=== PATIENT | female | born 1940 | race Hispanic/Latino ===

== ENCOUNTER 2018-05-10 10:26 | Outpatient (CLI) | payer MEDICARE, BC | END 2018-05-10 10:27 | disposition home or self-care (01) | LOC: RAD 10:26 | DX: I10 Essential (primary) hypertension (principal) ==

== ENCOUNTER 2018-05-28 11:22 | Emergency (ER) | payer MEDICARE, BC ==
--- NOTE | 2018-05-28 12:30 | ED PDOC ---
Arrival/HPI - General Chief Complaint: Hip Pain Time Seen by Provider: 05/28/18 11:56 Historian: Patient - History of Present Illness Narrative History of Present Illness (Text): 05/28/18 12:29 77 year old male, with past medical history of hypertension, hyperlipidemia, vertigo and total hip replacement (3 years ago), presents to the ED for evaluation of lower back pain s/p fall 2 days ago. Patient reports slip and fall onto her buttocks from a wet floor in a restaurant Sunday, however reports appropriate ambulation following the incident. Patient denies any head injury or loss of consciousness at the time. Patient reports worsening lower back pain since Sunday, intermittently improved with Advil at home. Patient denies any other associated somatic complaints. Patient denies any fevers, chills, headache, dizziness, chest pain, shortness of breath, dyspnea on exertion, cough, abdominal pain, nausea, vomiting, diarrhea, urinary or bowel incontinence, numbness/tingling, neck pain, or any other complaints. PMD: Dr. Juarez Time/Duration: < week Symptom Onset: Gradual Symptom Course: Unchanged Activities at Onset: Light Context: Home Past Medical History - Provider Review Nursing Documentation Reviewed: Yes - Cardiac Hx Hypertension: Yes - Psychiatric Hx Depression: No Hx Emotional Abuse: No Hx Physical Abuse: No Hx Substance Use: No - Surgical History Hx Joint Replacement: Yes (hip) - Anesthesia Hx Anesthesia: Yes Hx Anesthesia Reactions: No Hx Malignant Hyperthermia: No - Suicidal Assessment Feels Threatened In Home Enviroment: No Family/Social History - Physician Review Nursing Documentation Reviewed: Yes Family/Social History: No Known Family HX Smoking Status: Never Smoked Hx Alcohol Use: No Hx Substance Use: No Hx Substance Use Treatment: No Allergies/Home Meds Allergies/Adverse Reactions: Allergies erythromycin base Allergy (Verified 05/28/18 12:04) ANAPHYLAXIS latex Allergy (Verified 05/31/18 11:18) JUAREZ OCCUR ON SKIN Penicillins Allergy (Verified 05/28/18 12:04) ANAPHYLAXIS pregabalin [From Lyrica] Allergy (Verified 05/28/18 12:05) ANAPHYLAXIS Sulfa (Sulfonamide Antibiotics) Allergy (Verified 05/28/18 12:04) ANAPHYLAXIS sulfamethoxazole [From Bactrim] Allergy (Verified 05/28/18 12:04) ANAPHYLAXIS trimethoprim Allergy (Verified 05/28/18 12:04) ANAPHYLAXIS Home Medications: Home Meds Medication Instructions Recorded Confirmed Cholecalciferol (Vitamin D3) 2,000 iu PO DAILY 05/28/18 05/31/18 [Vitamin D3] Levothyroxine [Synthroid] 100 mcg PO DAILY 05/28/18 05/31/18 RX: Aspirin [Lo-Dose Aspirin EC] 81 mg PO DAILY 05/28/18 05/31/18 RX: Meclizine [Antivert] 12.5 mg PO DAILY PRN 05/28/18 05/31/18 RX: Simvastatin [Zocor] 40 mg PO DAILY 05/28/18 05/31/18 RX: Valsartan [Diovan] 80 mg PO DAILY 05/28/18 05/31/18 Review of Systems - Physician Review All systems were reviewed & negative as marked: Yes - Review of Systems Constitutional: absent: Fevers Respiratory: absent: SOB, Cough Cardiovascular: absent: Chest Pain Gastrointestinal: absent: Abdominal Pain, Diarrhea Genitourinary Female: absent: Dysuria Musculoskeletal: Back Pain. absent: Neck Pain Skin: absent: Rash Neurological: absent: Headache, Dizziness Physical Exam Vital Signs Reviewed: Yes Vital Signs Temp Pulse Resp BP Pulse Ox 05/28/18 11:22 98.3 F 68 18 165/75 H 96 Temperature: Afebrile Blood Pressure: Hypertensive Pulse: Regular Respiratory Rate: Normal Appearance: Positive for: Well-Appearing, Non-Toxic, Comfortable Pain Distress: None Mental Status: Positive for: Alert and Oriented X 3 - Systems Exam Head: Present: Atraumatic, Normocephalic Pupils: Present: PERRL Extroacular Muscles: Present: EOMI Conjunctiva: Present: Normal Mouth: Present: Moist Mucous Membranes Neck: Present: Normal Range of Motion. No: MIDLINE TENDERNESS, Paraspinal Tenderness Respiratory/Chest: Present: Clear to Auscultation, Good Air Exchange. No: Respiratory Distress, Accessory Muscle Use Cardiovascular: Present: Regular Rate and Rhythm, Normal S1, S2. No: Murmurs Back: Present: Paraspinal Tenderness (mid throacic and right sided lumbar pa raspinal tenderness). No: Midline Tenderness Upper Extremity: Present: Normal Inspection. No: Cyanosis, Edema Lower Extremity: Present: Normal Inspection, NORMAL PULSES. No: Edema Neurological: Present: GCS=15, CN II-XII Intact, Speech Normal, Motor Func Grossly Intact, Norm Deep Tendon Reflexes Skin: Present: Warm, Dry, Normal Color. No: Rashes Psychiatric: Present: Alert, Oriented x 3, Normal Insight, Normal Concentration Medical Decision Making ED Course and Treatment: 05/28/18 12:27 Impression: 77 year old female presents to the ED for evaluation of lower back pain s/p fall. Differential Diagnosis included but are not limited to: -- Fracture -- Musculoskeletal Plan: -- Toradol -- X-ray of thoracic spine -- X-ray of Lumbar Spine -- Reassess and disposition Prior Visits: Notes and results from previous visits were reviewed. Progress Notes: 05/28/18 15:40 Patient states feeling better and would like to go home. Patient is very well appearing and non-toxic. Vital signs are stable. I discussed the results of the work-up, diagnosis and treatment. I discussed with her in detail regarding her compression fracture. Written discharge instructions were provided to patient. Additional verbal instructions were given and discussed with patient. We discussed the importance of follow up with PCP/consultants. I also reiterated reasons to immediately return to the ER including: worsening in current symptoms and/or new, continued, or concerning symptoms. Pt understood and agreed. 05/28/18 15:[address] Sampson tineo, interventional radiologist, he will send a prescription for the patient to get an MR done, then will follow up with her when he gets the results. - Scribe Statement The provider has reviewed the documentation as recorded by the Scribe Jessica Rico. All medical record entries made by the Scribe were at my direction and personally dictated by me. I have reviewed the chart and agree that the record accurately reflects my personal performance of the history, physical exam, medical decision making, and the department course for this patient. I have also personally directed, reviewed, and agree with the discharge instructions and disposition. Disposition/Present on Arrival - Present on Arrival Any Indicators Present on Arrival: No History of DVT/PE: No History of Uncontrolled Diabetes: No Urinary Catheter: No History of Decub. Ulcer: No History Surgical Site Infection Following: None - Disposition Have Diagnosis and Disposition been Completed?: Yes Diagnosis: Compression fracture of T12 vertebra Disposition: HOME/ ROUTINE Disposition Time: 16:02 Patient Plan: Discharge Condition: STABLE Discharge Instructions (ExitCare): Vertebral Compression Fracture (DC) Prescriptions: RX: traMADol [Ultram] 50 mg PO Q6H PRN #20 tab PRN Reason: Pain, Severe (8-10) Referrals: Sampson Tineo MD [Staff Provider] - Follow up with primary Forms: [email or web address] ([employer])
--- NOTE | 2018-05-28 14:17 | RAD ---
Date of service: 05/28/2018 PROCEDURE: Radiographs of the Lumbar Spine. HISTORY: fall/injury COMPARISON: No prior. FINDINGS: BONES: There is moderate loss in height of the T12 vertebral body consistent with compression fracture of indeterminate age. The remaining vertebral bodies are maintained in height. Normal alignment is maintained. There is mild thoracolumbar levoscoliosis. The transverse processes and posterior elements appear intact. DISC SPACES: There is narrowing of the L4-5 intervertebral disc space consistent with degenerative disc disease. OTHER FINDINGS: Right hip arthroplasty IMPRESSION: Moderate compression deformity of T12 vertebral body of indeterminate age.
--- NOTE | 2018-05-28 14:18 | RAD ---
Date of service: 05/28/2018 HISTORY: fall/injury COMPARISON: No prior. FINDINGS: BONES: Moderate loss in height of the T12 vertebral body consistent with compression fracture of indeterminate age the remaining vertebral bodies are maintained in height. There is thoracic dextroscoliosis. Normal alignment is otherwise maintained. DISC SPACES: Normal. SOFT TISSUES: Paraspinous soft tissues are unremarkable. OTHER FINDINGS: None. IMPRESSION: Moderate compression deformity of T12 vertebra of indeterminate age.
[2018-05-28 15:34] VITALS: TEMP 98.2; O2SAT 97
[2018-05-28 16:26] VITALS: BP 150/86; PULSE 69; RESP 16
== END 2018-05-28 16:25 | disposition home or self-care (01) ==
LOC: ED 11:22
DX: M48.54XA Collapsed vertebra, not elsewhere classified, thoracic region, initial encounter for fracture (principal); W01.0XXA Fall on same level from slipping, tripping and stumbling without subsequent striking against object, initial encounter; E78.5 Hyperlipidemia, unspecified; I10 Essential (primary) hypertension
CPT/HCPCS: 72070; 72100; 96372; 99284; J1885

== ENCOUNTER 2018-05-30 12:03 | Outpatient (CLI) | payer MEDICARE, BC | END 2018-05-30 12:04 | disposition home or self-care (01) | LOC: RAD 12:04 ==

== ENCOUNTER 2018-06-03 13:00 | Inpatient (IN) | payer MEDICARE, BC ==
[2018-05-31 11:17] VITALS: BMI 40.0
[2018-06-03 14:05] LABS: BASO # 0.02 K/mm3 (0.0-2.0); BASO % 0.3 % (0.0-3.0); EOS # 0.2 (0.0-0.7); EOS % 2.5 % (1.5-5.0); HEMOGLOBIN 11.2 g/dL (12.0-16.0); LYMPH # 1.7 (1.2-3.4); LYMPH % 23.8 % (22.0-35.0); MEAN CELL VOLUME 92.6 fl (80.0-105.0); MEAN CORPUSCULAR HEMOGLOBIN 30.9 pg (25.0-35.0); MEAN CORPUSCULAR HGB CONC 33.3 g/dl (31.0-37.0); MEAN PLATELET VOLUME 7.7 fl (7.0-11.0); MONO # 0.6 (0.1-0.6); MONO % 8.1 % (1.0-6.0); RBC 3.63 10^6/uL (3.5-6.1); RED CELL DISTRIBUTION WIDTH 13.4 % (11.5-14.5); WHITE BLOOD COUNT 7.3 10^3/uL (4.5-11.0)
[2018-06-03 14:11] LABS: BLOOD UREA NITROGEN 25 mg/dL (7-21); CALCIUM 9.4 mg/dL (8.4-10.5); GFR NON-AFRICAN AMERICAN > 60
[2018-06-03 14:19] LABS: INR 1.1; PROTHROMBIN TIME 12.2 SECONDS (9.4-12.5)
[2018-06-03] MEDS ORDERED: Lidocaine 2% Inj (20ml) ONE (15:06)
[2018-06-03] MEDS ORDERED: Midazolam 2 MG/2 ML VIAL ONE ×2 (16:55→17:11)
[2018-06-03] MEDS ORDERED: Oxycodone/Acetaminophen 5/325 mg Tab PO PRN (17:45)
[2018-06-03] MEDS ORDERED: Sodium Chloride 0.45% 1,000 ML IV SCH (17:45)
--- NOTE | 2018-06-03 19:17 | VASCULAR ---
PROCEDURE: 1. T12 kyphoplasty. 2. T12 vertebral body biopsy. HISTORY: Severe, refractory back pain. Unresponsive to bed rest and analgesics. Acute T12 compression fracture on MRI. PHYSICIAN(S): Sampson Pena MD. TECHNIQUE: he relative risks and indications of the procedure were explained to the patient and her daughters and informed written consent obtained. The patient was placed prone on the arteriography table and the thoracolumbar spine prepped and draped in the usual sterile fashion. Conscious sedation and monitoring were provided throughout the procedure by a nurse. The T12 vertebral body was carefully localized with fluoroscopy. The skin and soft tissues were anesthetized with 1% Xylocaine. Under direct fluoroscopic guidance, bilateral transpedicular bone needles were placed into the posterior aspect of the T12 vertebral body. Through the right needle, a biopsy of the [id number] body was performed. The specimen was sent to histology. Next bilateral 15mm bone balloons were placed in the superior and anterior portion of the T12 vertebral body. They were inflated to approximately 5 cc apiece with dilute contrast. The balloons were removed and 7.5 cc of barium-impregnated PMMA cement instilled into the T12 vertebral body. No extravasation was seen. The bone needles were removed. The patient tolerated the procedure well. IMPRESSION: 1. Fluoroscopically-guided T12 kyphoplasty. 2. Fluoroscopic T12 vertebral body biopsy.
[2018-06-04] MEDS: Levothyroxine 100 MCG TAB PO SCH ×2 (05:53→11:06)
[2018-06-04] MEDS ORDERED: Morphine 2 mg/ml ISec IVP PRN ×2 (09:03→15:33)
[2018-06-04] MEDS ORDERED: Sodium Chloride 0.45% 1,000 ML IV SCH (09:15)
[2018-06-04] MEDS ORDERED: Home Med 1 UNIT PO SCH (10:00)
[2018-06-04] MEDS: Cholecalciferol 1,000 INTLU TAB PO SCH (11:13)
--- NOTE | 2018-06-04 13:08 | CP.PCM.APN ---
Subjective - Date & Time of Evaluation Date of Evaluation: 06/04/18 Time of Evaluation: 15:00 - Subjective Subjective: Pt seen and examined at bedside. No c/o back pain, but complaining of bilateral hip pain, L>R. Stated that she slipped and fell 05/26/18 but did not seek any medical help. Objective - Vital Signs/Intake and Output Vital Signs (last 24 hours): Temp Pulse Resp BP Pulse Ox 98.6 F 62 20 112/65 96 06/04/18 06:00 06/04/18 11:14 06/04/18 06:00 06/04/18 11:14 06/04/18 06:00 Intake and Output: 06/04/18 06/04/18 06:59 18:59 Intake Total 770 Output Total 750 Balance 20 - Medications Medications: Current Medications Acetaminophen (Tylenol 325mg Tab) 650 mg PO Q4 PRN PRN Reason: Pain, Mild (1-3) Last Admin: 06/04/18 00:50 Dose: 650 mg Acetaminophen (Tylenol 325mg Tab) 650 mg PO Q6H PRN PRN Reason: Pain, Mild (1-3) Last Admin: 06/04/18 09:44 Dose: 650 mg Aspirin (Ecotrin) 81 mg PO DAILY [facility] [place] Last Admin: 06/04/18 11:13 Dose: 81 mg Atorvastatin Calcium (Lipitor) 20 mg PO DIN [facility] [place] Cholecalciferol (Vitamin D) 2,000 intlu PO DAILY [facility] [place] Last Admin: 06/04/18 11:13 Dose: 2,000 intlu Sodium Chloride (Sodium Chloride 0.45%) 1,000 mls @ 40 mls/hr IV .Q24H [facility] [place] Levothyroxine Sodium (Synthroid) 100 mcg PO ACB [facility] [place] Last Admin: 06/04/18 11:06 Dose: Not Given Losartan Potassium (Cozaar) 50 mg PO DAILY [facility] Last Admin: 06/04/18 11:14 Dose: 50 mg Meclizine HCl (Antivert) 12.5 mg PO DAILY PRN PRN Reason: Dizziness Morphine Sulfate (Morphine) 2 mg IVP Q4H PRN PRN Reason: Pain, moderate (4-7) Ondansetron HCl (Zofran Inj) 4 mg IVP Q6H PRN PRN Reason: Nausea/Vomiting Oxycodone/Acetaminophen (Percocet 5/325 Mg Tab) 1 tab PO Q4H PRN PRN Reason: Pain, moderate (4-7) Stop: 06/06/18 17:46 - Labs Labs: 06/03/18 13:55 06/03/18 13:55 PT 12.2 SECONDS (9.4-12.5) 06/03/18 13:55 INR 1.10 06/03/18 13:55 APTT 36.0 Seconds (26.9-38.3) 06/03/18 13:55 - Constitutional Appears: No Acute Distress - Eye Exam Eye Exam: Normal appearance - Neck Exam Neck Exam: Full ROM - Respiratory Exam Respiratory Exam: Clear to Ausculation Bilateral, NORMAL BREATHING PATTERN - Cardiovascular Exam Cardiovascular Exam: REGULAR RHYTHM, +S1, +S2 - GI/Abdominal Exam GI & Abdominal Exam: Soft, Normal Bowel Sounds - Rectal Exam Rectal Exam: Deferred - Neurological Exam Neurological Exam: Alert, Awake, Oriented x3 Assessment and Plan - Assessment and Plan (Free Text) Assessment: Pt is a 77 y.o. female who is s/p Kyphoplasty. ITS Impressions Interventional Vascular Procedure 06/03/18 10:27 IMPRESSION: 1. Fluoroscopically-guided T12 kyphoplasty. 2. Fluoroscopic T12 vertebral body biopsy. Plan: Pain management Physical therapy Meds per [facility] TCU eval Will continue to follow
--- NOTE | 2018-06-04 13:38 | RAD ---
PROCEDURE: Radiographs of the pelvis and bilateral hips HISTORY: pain COMPARISON: None. FINDINGS: BONES: Pelvis: Unremarkable. Right hip:No fracture. Left hip:Unremarkable. JOINTS: Right hip: Status post right hip arthroplasty. No evidence of prosthesis loosening. Left hip: Unremarkable. Sacroiliac Joints: Unremarkable. Pubic symphysis: Unremarkable. SOFT TISSUES: Normal. OTHER FINDINGS: None. IMPRESSION: No acute fracture. Right hip arthroplasty.
--- NOTE | 2018-06-04 19:29 | HP ---
DATE OF EXAM: 06/04/2018 HISTORY OF PRESENT ILLNESS: I have known Edna for many years. She apparently had a fall and then she was in back pain. She fell on 05/26/2018, had severe back pain across the waist, and had outpatient x-rays, which showed compression fractures. I sent her to Dr. Sampson Pena for evaluation. He then did a T12 acute compression fracture kyphoplasty, I thought should be in and out and 24 hours or less, apparently now she cannot move except for excruciating pain and she is in bed. She had an extended stay, but today she tells me she feels worse than yesterday. She said she can get up, she lives alone, cannot take care of herself and her condition and scared to get up and move and there is a lot of pain, pain to palpation and pain to moving the legs. I will put her on more pain medication. She is a 77-year-old white female with a history of fall, compression fractures, and recent kyphoplasty. 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 She had chemo injections, cataracts, precancerous nodules of the thyroid. She has had hysterectomy, right hip replacement 3 years ago, and thyroid biopsies. SOCIAL HISTORY: No smoking. No drinking. No drugs. Anesthesia makes her confused with speech impairment and nauseousness. FAMILY HISTORY: Father had heart disease. She is awake, alert, and oriented x3. She has very bad back pain. History of ankles being swollen. She has arthritis. No problems going to the bathroom or eating. She does have some anxiety history. REVIEW OF SYSTEMS: No acute vision or hearing changes. No chest pain or palpitations. No cough or shortness of breath. No abdominal pain, nausea, or vomiting. She has severe back pain, difficult to move the legs without having the pain exacerbated. ALLERGIES: SHE HAS MULTIPLE ALLERGIES ADHESIVE TAPE, ERYTHROMYCIN, LATEX PENICILLIN, PREGABALIN, AND SULFA. MEDICATIONS: She does take at home; tramadol, meclizine, valsartan, aspirin, levothyroxine, vitamin D3, and Zocor. We will put her on her medications. I was hoping to discharge her today, but she cannot move without severe pain. I am adding morphine IV to the tramadol, also she has some Zofran for the nauseousness, put her back on a regular medications. PHYSICAL EXAMINATION: VITAL SIGNS: She has a 98.6 temperature, 62 pulse, 110/64 blood pressure, 20 respiratory rate, and 96% O2 sat on nasal cannula. HEENT: Head; atraumatic and normocephalic. Extraocular muscles are intact. Pupils equal and reactive to light. Throat is moist. NECK: Supple. No JVD. HEART: Regular rate. LUNGS: Decreased breath sounds, but clear. ABDOMEN: Soft, obese, and nontender. Positive bowel sounds. EXTREMITIES: Trace edema. She does have severe back pain to palpation, she would not move, she is in pain, and she is very uncomfortable. LABORATORY DATA: She has 138 sodium, potassium 4.4, BUN 25, creatinine 0.7, GFR is greater than 60, sugar is 92, and calcium is 9.4. INR is 1.1. White count 7.3, hemoglobin 11.2, hematocrit 33.6 with 245 platelets. ASSESSMENT AND PLAN: We tried to get her in now as the same-day surgery that is extended recovery, now I have to plan make her an inpatient. She probably subacute rehab or transitional care unit, status post fall, back pain, kyphoplasty. I called in physical therapist, increase the pain medication. For elevated BUN, I will give her some IV fluids. She has consults with Dr. Sampson Pena and physical therapy. Eyal Juarez DO MTDD
[2018-06-05] MEDS: Levothyroxine 100 MCG TAB PO SCH (06:44)
[2018-06-05 07:32] LABS: HEMOGLOBIN 10.5 g/dL (12.0-16.0); MEAN CELL VOLUME 92.6 fl (80.0-105.0); MEAN CORPUSCULAR HGB CONC 32.4 g/dl (31.0-37.0); MEAN PLATELET VOLUME 7.9 fl (7.0-11.0); RBC 3.5 10^6/uL (3.5-6.1); RED CELL DISTRIBUTION WIDTH 13.7 % (11.5-14.5); WHITE BLOOD COUNT 6.6 10^3/uL (4.5-11.0)
[2018-06-05 08:13] LABS: ALB/GLOB RATIO 1.2 (1.1-1.8); ALBUMIN 3.5 g/dL (3.0-4.8); ALT/SGPT 7 U/L (7-56); AST/SGOT 31 U/L (14-36); BLOOD UREA NITROGEN 17 mg/dL (7-21); GFR NON-AFRICAN AMERICAN > 60
[2018-06-05] MEDS: Cholecalciferol 1,000 INTLU TAB PO SCH (09:25)
--- NOTE | 2018-06-05 10:20 | PN ---
DATE: 06/05/2018 SUBJECTIVE: She is in pain in her back and her hips. She is not feeling well status post kyphoplasty. She is on Antivert, Cozaar, Ecotrin, Lipitor, morphine, IV fluids, Synthroid, Tylenol, Ultram, vitamin D and Zofran. PHYSICAL EXAMINATION: VITAL SIGNS: She has a 98.1 temperature, 72 pulse, 144/71 blood pressure, 20 respiratory rate, 94% O2 sat on 2 liters. HEAD: Atraumatic, normocephalic. HEART: Regular rate. LUNGS: Decreased breath sounds. ABDOMEN: Soft, obese, nontender. EXTREMITIES: Trace edema. She has low back pain to palpation. LABORATORY DATA: She has a 7.3 white count, 11.2 hemoglobin, 245 platelets. She has a 138 sodium, potassium 4.4, BUN 25, creatinine 0.7,GFR is greater than 60, sugar is 92. She has a hip and pelvis x-ray, no acute fracture, right hip arthroplasty, so she is in a lot of pain. RECOMMENDATIONS: We are going to get her to TCU after three overnights. We will continue with aggressive treatment and care, back pain medicines, physical therapy here in the hospital. Hopefully, she will improve. She has pain medicines on. The patient with compression fractures, had kyphoplasty and in pain. Eyal Juarez DO
[2018-06-06 07:40] LABS: HEMOGLOBIN 10.2 g/dL (12.0-16.0); MEAN CORPUSCULAR HEMOGLOBIN 30.4 pg (25.0-35.0); MEAN PLATELET VOLUME 7.9 fl (7.0-11.0); RBC 3.36 10^6/uL (3.5-6.1); RED CELL DISTRIBUTION WIDTH 13.5 % (11.5-14.5); WHITE BLOOD COUNT 6.6 10^3/uL (4.5-11.0)
[2018-06-06 07:58] LABS: ALB/GLOB RATIO 1.2 (1.1-1.8); ALBUMIN 3.4 g/dL (3.0-4.8); ALT/SGPT 13 U/L (7-56); AST/SGOT 20 U/L (14-36); BLOOD UREA NITROGEN 19 mg/dL (7-21); CALCIUM 8.9 mg/dL (8.4-10.5); GFR NON-AFRICAN AMERICAN > 60
[2018-06-06] MEDS: Levothyroxine 100 MCG TAB PO SCH (08:10)
[2018-06-06] MEDS: Cholecalciferol 1,000 INTLU TAB PO SCH (10:29)
--- NOTE | 2018-06-06 13:30 | PN ---
DATE: 06/06/2018 SUBJECTIVE: I saw Edna resting comfortably in chair. She is still in severe back pain. She is able to walk to the bathroom, but she is still in lot of pain. MEDICATIONS: She is on Antivert, Cozaar, Ecotrin, Mevacor, morphine, IV fluids, Synthroid, Tylenol, Ultram, vitamin D and Zofran. PHYSICAL EXAMINATION: VITAL SIGNS: Temperature 98.5, pulse 66, blood pressure 117/66, respiratory rate 18, 94% O2 sat on room air. HEAD: Atraumatic, normocephalic. HEART: Regular rate. LUNGS: Decreased breath sounds, but clear. ABDOMEN: Soft, obese. EXTREMITIES: No edema. BACK: The back pain is still very tender. LABORATORY DATA: She has a 6.6 white count, 10.2 hemoglobin, 30.9 hematocrit with 232 platelets. Sodium 138, potassium 4.3, BUN is 19, creatinine 0.6, GFR is greater than 60, sugar is 93, calcium is 8.9, total bili is 0.3, AST is 20, ALT is 13, alk phos 75, total protein 6.3, albumin is 3.4. TSH is 3.66. ASSESSMENT AND PLAN: She is being seen by Cardiology, cardiac catheterization and hopefully tomorrow we will get her to transitional care unit and she is here with compression fracture of the low back with a kyphoplasty and severe pain. Eyal Juarez DO MTDMarycarmen
[2018-06-06] MEDS ORDERED: Bisacodyl 5mg EC Tab PO PRN (18:39)
[2018-06-07] MEDS: Levothyroxine 100 MCG TAB PO SCH (06:39)
[2018-06-07 07:51] LABS: HEMOGLOBIN 11.2 g/dL (12.0-16.0); MEAN CELL VOLUME 93.1 fl (80.0-105.0); MEAN CORPUSCULAR HEMOGLOBIN 29.7 pg (25.0-35.0); MEAN CORPUSCULAR HGB CONC 31.9 g/dl (31.0-37.0); MEAN PLATELET VOLUME 7.9 fl (7.0-11.0); RBC 3.77 10^6/uL (3.5-6.1); RED CELL DISTRIBUTION WIDTH 13.5 % (11.5-14.5); WHITE BLOOD COUNT 7.9 10^3/uL (4.5-11.0)
[2018-06-07 08:15] VITALS: BP 106/53; PULSE 66; RESP 20; TEMP 98.3; O2SAT 95
[2018-06-07 08:17] LABS: ALB/GLOB RATIO 1.2 (1.1-1.8); ALBUMIN 3.9 g/dL (3.0-4.8); ALT/SGPT 14 U/L (7-56); AST/SGOT 19 U/L (14-36); BLOOD UREA NITROGEN 18 mg/dL (7-21); CALCIUM 9.4 mg/dL (8.4-10.5); GFR NON-AFRICAN AMERICAN > 60
[2018-06-07] MEDS ORDERED: Morphine 2 mg/ml ISec IVP PRN (10:11)
[2018-06-07] MEDS: Cholecalciferol 1,000 INTLU TAB PO SCH (12:35)
--- NOTE | 2018-06-07 18:50 | CON ---
DATE: 06/07/2018 ORTHOPEDIC CONSULTATION LOCATION: In room 572, bed 1. Consult requested by Dr. Juarez. HISTORY OF PRESENT ILLNESS: A 77-year-old female, the patient came in with extreme low back pain approximately 05/28/2018 and found to have T12 compression fracture about 10-15% and underwent a vertebroplasty with the interventional radiology and had good relief, and presently she still has paralumbar spinal pain with no evidence of radiculitis, no straight leg raising and has less paraspinal muscle pain in the flank and the hip muscles, but no evidence of any spinal column discomfort; but no tenderness along the spinous processes. I feel also she has the heeling compression fracture of T12 with paraspinal muscle contusion, sprain and referred pain which should subside with good physical therapy, she was told of the precautions that she needs to do by not walking without assisted device like a cane or a walker, to sleep on a firm mattress and not to lose consciousness that she should not do thing, she should not such as lifting or twisting and to sleep on a good recliner or firm mattress and to undergo physical therapy to regain muscle strength, but there is no evidence of radicular pain that would be the worse thing. Otherwise, she has a good prognosis to improve her muscle strength when she goes to physical therapy. FINAL DIAGNOSES: Paraspinal muscle sprain and contusion from the fall on Sunday approximately the 01 of June. Christopher Kim DO
--- NOTE | 2018-06-07 20:27 | DS ---
DISCHARGE SUMMARY: She is being discharged from the hospital side going to the TCU side. She had a kyphoplasty for compression fracture with Dr. Sampson Pena. She is also going to consult with Dr. Christopher Kim for persistent back pain. She is going to go to TCU for physical therapy and care. She is on IV fluids, Antivert, Colace, Cozaar, Ecotrin, Lipitor, morphine, Synthroid, Tylenol, Ultram, vitamin D and Zofran. I am going to decrease the morphine to 1 mg if she starts getting off these pain meds that will help her bowels and she understands she is going to the TCU for physical therapy and to get to her procedure. PHYSICAL EXAMINATION: VITAL SIGNS: She has a 98.3 temperature, 66 pulse, 106/52 blood pressure, 20 respiratory rate, and 95% O2 sat on room air. HEENT: Head is atraumatic and normocephalic. HEART: Regular rate. LUNGS: Decreased breath sounds but clear. ABDOMEN: Soft, obese, and nontender. EXTREMITIES: No edema. BACK: She does have back pain. LABORATORY DATA: She has a 7.9 white count, 11.2 hemoglobin, 35.1 hematocrit, and 291 platelets. Sodium 142, potassium 4.4, BUN is 80, creatinine 0.7, GFR is greater than 60, sugar is 90, calcium 9.4, total bili is 0.4, AST is 19, ALT is 14, alk phos 85, total protein 7.2, albumin is 3.9. TSH 3.66. DISCHARGE DIAGNOSIS AND PLAN: She is status post fall, compression fracture status post kyphoplasty severe back pain going to TCU for further PT before she goes home. Ortho consult. Eyal Juarez DO
== END 2018-06-07 14:47 | DRG 479 ==
LOC: SDSVAS 13:00 → 5RSO 19:08 → SDSVAS 06-04 08:59
PROVIDERS: ADMIT Family Medicine; ATTEND Radiology Vascular & Interventional Radiology
PROC: 0PS43ZZ Reposition Thoracic Vertebra, Percutaneous Approach (ICD-10-PCS; principal; 2018-06-03)
PROC: 0PB43ZX Excision of Thoracic Vertebra, Percutaneous Approach, Diagnostic (ICD-10-PCS; 2018-06-03)
PROC: 0PU43JZ Supplement Thoracic Vertebra with Synthetic Substitute, Percutaneous Approach (ICD-10-PCS; 2018-06-03)
DX: S22.089A Unspecified fracture of T11-T12 vertebra, initial encounter for closed fracture (principal); I10 Essential (primary) hypertension; E04.2 Nontoxic multinodular goiter; F41.9 Anxiety disorder, unspecified; E78.00 Pure hypercholesterolemia, unspecified; Z86.11 Personal history of tuberculosis; W01.0XXA Fall on same level from slipping, tripping and stumbling without subsequent striking against object, initial encounter; Y92.9 Unspecified place or not applicable; D64.9 Anemia, unspecified; Z96.641 Presence of right artificial hip joint

== ENCOUNTER 2018-06-07 14:50 | Inpatient (IN) | payer OTHER, BC ==
[2018-06-07] MEDS ORDERED: Morphine 2 mg/ml ISec IVP PRN (15:04)
[2018-06-07] MEDS ORDERED: Sodium Chloride 0.45% 1,000 ML IV SCH (15:15)
[2018-06-07 20:30] VITALS: BMI 41.0
[2018-06-07] MEDS ORDERED: Pneumococcal 23-Valent Vaccine IM ONE (20:30)
[2018-06-07] MEDS ORDERED: Influenza Vaccine 60 mcg/0.5 mL SYR (4YR UP) IM ONE (20:30)
[2018-06-08] MEDS: Levothyroxine 100 MCG TAB PO SCH (05:49)
[2018-06-08 07:45] LABS: BASO # 0.03 K/mm3 (0.0-2.0); BASO % 0.5 % (0.0-3.0); EOS # 0.2 (0.0-0.7); EOS % 3.4 % (1.5-5.0); HEMOGLOBIN 10.7 g/dL (12.0-16.0); LYMPH # 1.6 (1.2-3.4); LYMPH % 24.8 % (22.0-35.0); MEAN CELL VOLUME 92.4 fl (80.0-105.0); MEAN CORPUSCULAR HEMOGLOBIN 30.2 pg (25.0-35.0); MEAN CORPUSCULAR HGB CONC 32.7 g/dl (31.0-37.0); MEAN PLATELET VOLUME 7.8 fl (7.0-11.0); MONO # 0.5 (0.1-0.6); MONO % 7.4 % (1.0-6.0); RBC 3.54 10^6/uL (3.5-6.1); RED CELL DISTRIBUTION WIDTH 13.4 % (11.5-14.5); WHITE BLOOD COUNT 6.5 10^3/uL (4.5-11.0)
[2018-06-08 08:15] LABS: ALB/GLOB RATIO 1.2 (1.1-1.8); ALBUMIN 3.7 g/dL (3.0-4.8); ALT/SGPT 12 U/L (7-56); AST/SGOT 36 U/L (14-36); BLOOD UREA NITROGEN 23 mg/dL (7-21); CALCIUM 9.1 mg/dL (8.4-10.5); GFR NON-AFRICAN AMERICAN > 60
[2018-06-08] MEDS: Cholecalciferol 1,000 INTLU TAB PO SCH (09:12)
--- NOTE | 2018-06-08 13:59 | HP ---
DATE OF EXAM: 06/08/2018 HISTORY AND PHYSICAL: She is now on the Transitional Care Unit. She is out of the hospital side. She is a 77-year-old white female who is having some low back issues. She had a fall and back pain with some compression fractures. She is saw Dr. Sampson Pena, he find a T12 acute compression fracture, did kyphoplasty and was not able to get up and move. She has severe back pain. She is now in the TCU for physical therapy, pain relief while we help her improve before she goes home. 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 She had blood clots x2 on the right eye, cataracts, precancerous nodules of the thyroid. Had hysterectomy, right hip replacement 3 years ago, thyroid biopsies now kyphoplasty of T12. SOCIAL HISTORY: No smoker. No drinking. No drugs. ALLERGIES: ANESTHESIA MAKE HER CONFUSED WITH SOME SPEECH IMPAIRMENT, NAUSEOUSNESS. FAMILY HISTORY: Father has had heart disease. REVIEW OF SYSTEMS: She is awake, sitting out of bed to chair. No acute vision or hearing changes. No chest pain or palpitations. No cough, no shortness of breath. No abdominal pain. No nausea, vomiting, constipation, diarrhea. She does have severe back pain, may be better in the past 24-48 hours. The leg pain, very sensational touched to the right lower extremity, which is almost to the skin level of pain. PHYSICAL EXAMINATION: VITAL SIGNS: Temperature 98.2, 75 pulse, 135/73 blood pressure, 18 respiratory rate, 95% O2 sat on room air. HEENT: Head is atraumatic, normocephalic. Extraocular muscles are intact. Throat is moist. NECK: Supple. No JVD. HEART: Regular rate. LUNGS: Decreased breath sounds, but clear. ABDOMEN: Soft, nontender. Positive bowel sounds. Obese. EXTREMITIES: Trace edema both legs to palpation, it is very, very tender generally to the skin. Very uncomfortable. Thyroid midline. No palpable appreciable lymphadenopathy. LABORATORY DATA: She has a 138 sodium, potassium 4.2, BUN 23, creatinine 0.7, GFR is greater than 60, sugar is 93, calcium is 9.1, total bili is 0.4, AST is 36, ALT is 12, alk phos 81, total protein 6.9. White count 6.5, hemoglobin 10.7, hematocrit 32.7, platelets of 274. IMPRESSION AND PLAN: She will have consults with Orthopedics. She will be on medication. We will check her labs tomorrow. Hopefully, she will improve with the pain and be able to walk better. The patient with a fall, compression fracture T12, status post kyphoplasty and pain. Eyal Juarez DO MTDMarycarmen
[2018-06-09] MEDS: Levothyroxine 100 MCG TAB PO SCH (05:14)
[2018-06-09 07:35] LABS: HEMOGLOBIN 10.3 g/dL (12.0-16.0); MEAN CELL VOLUME 92.8 fl (80.0-105.0); MEAN CORPUSCULAR HEMOGLOBIN 30.8 pg (25.0-35.0); MEAN CORPUSCULAR HGB CONC 33.2 g/dl (31.0-37.0); RBC 3.34 10^6/uL (3.5-6.1); RED CELL DISTRIBUTION WIDTH 13.3 % (11.5-14.5); WHITE BLOOD COUNT 7.6 10^3/uL (4.5-11.0)
[2018-06-09 07:48] LABS: ALB/GLOB RATIO 1.1 (1.1-1.8); ALBUMIN 3.5 g/dL (3.0-4.8); ALT/SGPT 16 U/L (7-56); AST/SGOT 30 U/L (14-36); BLOOD UREA NITROGEN 23 mg/dL (7-21); CALCIUM 8.8 mg/dL (8.4-10.5); GFR NON-AFRICAN AMERICAN > 60
[2018-06-09] MEDS: Cholecalciferol 1,000 INTLU TAB PO SCH (10:05)
[2018-06-09] MEDS: Lidocaine 5% Patch TD SCH (10:12)
--- NOTE | 2018-06-09 10:59 | PN ---
DATE: 06/09/2018 SUBJECTIVE: I saw her sitting up in bed in the Transitional Care Unit. She tells me she is starting to feel little a bit better since her kyphoplasty. She is walking with a walker better. There is still pain, maybe not as bad. I could not give her Lyrica due to her allergy which she forgot about. She is eating a little bit and she has got a better attitude today. PHYSICAL EXAMINATION: VITAL SIGNS: She has 98 temperature, 61 pulse, 120/81 blood pressure, 18 respiratory rate, 94% O2 sat on room air. HEENT: Head is atraumatic, normocephalic. HEART: Regular rate. LUNGS: Decreased breath sounds, but clear. ABDOMEN: Soft, obese. EXTREMITIES: No edema. LABORATORY DATA: She has 140 sodium, potassium 4.2, BUN 23, creatinine 0.6, GFR is greater than 60, sugar is 99, calcium is 8.8, total bili is 0.3, AST is 30, ALT is 16, alk phos 79, total protein 6.5, albumin is 3.5. White count 7.6, hemoglobin is 10.3, hematocrit 31, platelets of 272. MEDICATIONS: She is currently on Antivert, Colace, Cozaar, Ecotrin, Lidoderm now, Lipitor, morphine, Synthroid, Tylenol, Ultram, vitamin D, and Zofran as needed. ASSESSMENT AND PLAN: There are consults for Orthopedics, I will continue with physical therapy. I added Lidoderm patch to put over the area to help with the pain. Hopefully, she is not going to use the morphine, just the tramadol as needed, and hopefully, she will continue to do more on therapy. I encouraged her to get out of bed to chair every day, eat her food, and she does knows she can call the nurse if she needs me. Eyal Juarez DO
[2018-06-10] MEDS: Levothyroxine 100 MCG TAB PO SCH (05:01)
[2018-06-10] MEDS: Cholecalciferol 1,000 INTLU TAB PO SCH (09:58)
[2018-06-10] MEDS: Lidocaine 5% Patch TD SCH (09:59)
--- NOTE | 2018-06-10 12:31 | PN ---
DATE: 06/10/2018 SUBJECTIVE: She is resting comfortably in bed. She is doing better. The patch is really helping. She tells me the Lidoderm patch that I added Colace, Cozaar, Ecotrin, Lipitor, morphine, Synthroid, Tylenol, Ultram, vitamin D and the Lidoderm patch, I think I am going to stop the morphine. OBJECTIVE: VITAL SIGNS: She has a 98 temperature, 68 pulse, 125/82 blood pressure, 18 respiratory rate, 92% O2 sat. HEENT: Head is atraumatic, normocephalic. HEART: Regular rate. LUNGS: Decreased breath sounds, but clear. ABDOMEN: Soft, nontender. Positive bowel sounds. EXTREMITIES: No edema. BACK: The back is less tender, but still little tender. She is moving better. Physical therapy to go. LABORATORY DATA: She has 7.6 white count, 10.3 hemoglobin, 31 hematocrit with 272 platelets. Sodium 140, potassium 4.2, BUN 23, creatinine 0.6, GFR is greater than 60, sugar is 99, calcium is 8.8, total bili is 0.3. AST is 30, ALT is 16, alk phos 79, total protein 6.5. We will continue with aggressive treatment and care, physical therapy, pain medications. I am going to discontinue the morphine and see how she get along with the tramadol and the patch, continue aggressive treatment and care. She had a fall, compression fracture, kyphoplasty and pain. Eyal Juarez DO MTDD
[2018-06-11] MEDS: Levothyroxine 100 MCG TAB PO SCH (05:25)
[2018-06-11 07:14] LABS: HEMOGLOBIN 10.4 g/dL (12.0-16.0); MEAN CELL VOLUME 91.9 fl (80.0-105.0); MEAN CORPUSCULAR HEMOGLOBIN 30.1 pg (25.0-35.0); MEAN CORPUSCULAR HGB CONC 32.7 g/dl (31.0-37.0); MEAN PLATELET VOLUME 7.8 fl (7.0-11.0); RBC 3.46 10^6/uL (3.5-6.1); RED CELL DISTRIBUTION WIDTH 13.3 % (11.5-14.5); WHITE BLOOD COUNT 6.7 10^3/uL (4.5-11.0)
[2018-06-11 07:39] LABS: ALB/GLOB RATIO 1.2 (1.1-1.8); ALBUMIN 3.5 g/dL (3.0-4.8); ALT/SGPT 16 U/L (7-56); AST/SGOT 33 U/L (14-36); BLOOD UREA NITROGEN 18 mg/dL (7-21); CALCIUM 9.1 mg/dL (8.4-10.5); GFR NON-AFRICAN AMERICAN > 60
[2018-06-11] MEDS: Lidocaine 5% Patch TD SCH (09:52)
[2018-06-11] MEDS: Cholecalciferol 1,000 INTLU TAB PO SCH (09:52)
--- NOTE | 2018-06-11 12:44 | PN ---
DATE: 06/11/2018 SUBJECTIVE: I saw her resting comfortably in bed. She is in now. She is having headaches. She said when she fell she thought she hit her head, nothing was ever done about it, so she wants to have a CAT scan of her head to ensure her brain is okay. Her back still hurts. She is trying to do more in therapy. She is on Antivert, Colace, Cozaar, Ecotrin, Lidoderm patch which she tells me is helping, Lipitor, Synthroid, Tylenol, Ultram, vitamin D and Zofran. She is eating well. PHYSICAL EXAMINATION: VITAL SIGNS: She has 97.7 temp, 69 pulse, 126/80 blood pressure, 18 respiratory rate and 96% O2 sat on room air. HEENT: Head is atraumatic and normocephalic. Throat is moist. NECK: Supple. HEART: Regular rate. LUNGS: Decreased breath sounds, but clear. ABDOMEN: Soft and obese. EXTREMITIES: No edema and not that tender this morning. LABORATORY DATA: She has 6.7 white count, 10.4 hemoglobin, 31.8 hematocrit with a 276 platelets. Sodium 139, potassium 4, BUN 18, creatinine 0.6, GFR is greater than 60, sugar is 91, calcium is 9.1, total bili is 0.3, AST is 33, ALT is 16, alk phos 83 and total protein 6.2. She has consult with Orthopedic. I will order her a CAT scan of the head without IV contrast. Continue to encourage her to take the medications and do physical therapy and she is here with fall, back pain, T12 compression fracture as well as kyphoplasty and pain. Now headache. Eyal Juarez DO MTDD
[2018-06-12] MEDS: Levothyroxine 100 MCG TAB PO SCH (05:38)
[2018-06-12] MEDS: Lidocaine 5% Patch TD SCH (10:37)
[2018-06-12] MEDS: Cholecalciferol 1,000 INTLU TAB PO SCH (10:38)
--- NOTE | 2018-06-12 12:34 | PN ---
DATE: 06/12/2018 SUBJECTIVE: I saw her in her bed this morning with Orthopedics, they were there also. She is trying physical therapy. The walker is at the bedside. She is on the patch for the back pain. It is helping. She is on Antivert, Colace, Cozaar, Ecotrin, Lidoderm patch, Lipitor, Synthroid, Tylenol, Ultram as needed, vitamin D and Zofran. Lots of questions to me this morning. PHYSICAL EXAMINATION: VITAL SIGNS: Temperature 95.5, pulse 64, blood pressure 145/89, respiratory rate 18, 96% O2 sat. HEAD: Atraumatic, normocephalic. HEART: Regular rate. LUNGS: Decreased breath sounds, but clear. ABDOMEN: Soft, nontender. Positive bowel sounds. EXTREMITIES: No edema. Nontender to palpation. BACK: Back is improved with palpation and is improving. LABORATORY DATA: She had a 6.7 white count, 10.4 hemoglobin, 276 platelets. Sodium 139, potassium 4, BUN is 318, creatinine 0.6, GFR is greater than 60, sugar 91, calcium 9.1, total bili is 0.3, AST is 33, ALT is 16, alk phos is 83. DIAGNOSTIC DATA: She had a CT scan of the brain. Results are not on the chart, although I was told they were negative. ASSESSMENT AND PLAN: We will continue with aggressive treatment and care. The CAT scan showed no acute intracranial hemorrhage. Continue with physical therapy. The patient is here for compression fracture of T12, kyphoplasty and back pain. Eyal Juarez DO
[2018-06-13] MEDS: Levothyroxine 100 MCG TAB PO SCH (05:47)
[2018-06-13 07:23] LABS: HEMOGLOBIN 11.3 g/dL (12.0-16.0); MEAN CELL VOLUME 91.4 fl (80.0-105.0); MEAN CORPUSCULAR HEMOGLOBIN 30.2 pg (25.0-35.0); MEAN PLATELET VOLUME 7.6 fl (7.0-11.0); RBC 3.74 10^6/uL (3.5-6.1); RED CELL DISTRIBUTION WIDTH 13.3 % (11.5-14.5); WHITE BLOOD COUNT 6.7 10^3/uL (4.5-11.0)
[2018-06-13 07:43] LABS: ALB/GLOB RATIO 1.2 (1.1-1.8); ALBUMIN 3.7 g/dL (3.0-4.8); ALT/SGPT 15 U/L (7-56); AST/SGOT 26 U/L (14-36); BLOOD UREA NITROGEN 22 mg/dL (7-21); CALCIUM 9.4 mg/dL (8.4-10.5); GFR NON-AFRICAN AMERICAN > 60
[2018-06-13] MEDS: Lidocaine 5% Patch TD SCH (10:09)
[2018-06-13] MEDS: Cholecalciferol 1,000 INTLU TAB PO SCH (10:09)
--- NOTE | 2018-06-13 11:50 | PN ---
DATE: 06/13/2018 SUBJECTIVE: She is sitting out of bed to chair today which is great. She is in the transitional care unit. She is eating well. She has two more days to go. She is improving with the walking and physical therapy. The back pain is still there, but the Lidoderm patch is helping. She is on Antivert, Colace, Cozaar, Ecotrin, Lidoderm, Lipitor, Synthroid, Tylenol, Ultram. She is not really taking vitamin D and Zofran. PHYSICAL EXAMINATION: VITAL SIGNS: She has a 97.8 temperature, 64 pulse, 119/84 blood pressure, 18 respiratory rate, 95% O2 sat. HEAD: Atraumatic, normocephalic. HEART: Regular rate. LUNGS: Decreased breath sounds. ABDOMEN: Soft, obese. EXTREMITIES: Tender. Trace edema but she is doing well with therapy. She is walking well with the walker. BACK: The back pain is less and she is status post fall, compression fractures, kyphoplasty. LABORATORY DATA: She has a 6.7 white count, 11.3 hemoglobin, 34.2 hematocrit with 268 platelets. 142 sodium, potassium 4.6, BUN 22, creatinine 0.7, GFR is greater than 60, sugar is 94, calcium 9.4, total bili is 0.2, AST is 26, ALT is 15, alk phos 86, total protein 6.9. ASSESSMENT AND PLAN: Overall, she is improving. She had multiple questions to me today. I will get social insurance administrator involved for home visiting nurses, may be home physical therapy and I will plan for house call next week. We will continue with aggressive treatment and care. The patient had a fall, T12 compression fracture status post kyphoplasty, severe back pain. Eyal Juarez DO
[2018-06-13 16:26] VITALS: RESP 18
[2018-06-13] MEDS ORDERED: Simethicone 80 mg Chewtab PO STA (23:10)
[2018-06-14] MEDS: Levothyroxine 100 MCG TAB PO SCH (06:13)
[2018-06-14] MEDS ORDERED: Alum-Mag Hydrox-Simethicone Susp (30 mL) PO PRN (09:26)
[2018-06-14] MEDS: Lidocaine 5% Patch TD SCH (10:04)
[2018-06-14] MEDS: Cholecalciferol 1,000 INTLU TAB PO SCH (10:05)
--- NOTE | 2018-06-14 11:14 | CP.PCM.CON ---
<Marguerite Vasquez - Last Filed: 06/14/18 11:31> History of Present Illness - History of Present Illness History of Present Illness: PGY5 GI Initial Consult Edna Hsu is a 78F w/ hx of TB, vertigo, Right eye clot, R hip replacement, Thyroid nodule and T12 compression who presented as a transfer from [facility] Rehab post T12 Kyphoplasty. Pt states that she experience some constipation post procedure and after pain medication use. PT was given stool softners and laxative with some relief. After being transferred to the TICU, pt states that her abd is more distented and she is bloated. She notes having a BM, but small. Denies any rectal bleeding, nausea or vomiting. PMHx: TB, vertigo, R eye clot, Thyroid nodule, T12 compression SHx: t12 kyphoplasty, right hip replacement Family hx: denies nay GI related malignancies Social Hx: denies any tobaccoo use, ETOH or illicit drug use ROS: 12 point ROS conducted, neg other than above Past Patient History - Past Social History Smoking Status: Never Smoked - CARDIAC Hx Hypertension: Yes - NEUROLOGICAL HX Cerebrovascular Accident: Yes - ENDOCRINE/METABOLIC Hx Hypothyroidism: Yes - HEMATOLOGICAL/ONCOLOGICAL Hx Blood Transfusions: No - MUSCULOSKELETAL/RHEUMATOLOGICAL Hx Falls: Yes - GASTROINTESTINAL Hx Gastrointestinal Disorders: Yes (CONSTIPATION) - GENITOURINARY/GYNECOLOGICAL Hx Genitourinary Disorders: Yes (URGENCY WEARS PADS) Hx Reproductive Disorders: No - PSYCHIATRIC Hx Emotional Abuse: No Hx Physical Abuse: No Hx Substance Use: No - SURGICAL HISTORY Hx Surgeries: Yes Other/Comment: Right Hip Replacement. Right knee Arthroscopy - ANESTHESIA Hx Anesthesia Reactions: Yes (CONFUSION, SPEECH IMPAIRMENT AND NAUSEA) Hx Malignant Hyperthermia: No Meds Allergies/Adverse Reactions: Allergies Allergy/AdvReac Type Severity Reaction Status Date / Time adhesive tape Allergy RASH Verified 06/07/18 18:02 erythromycin base Allergy ANAPHYLAXIS Verified 06/07/18 18:02 latex Allergy JUAREZ Verified 06/07/18 18:02 OCCUR ON SKIN Penicillins Allergy ANAPHYLAXIS Verified 06/07/18 18:02 pregabalin [From Lyrica] Allergy ANAPHYLAXIS Verified 06/07/18 18:02 Sulfa (Sulfonamide Allergy ANAPHYLAXIS Verified 06/07/18 18:02 Antibiotics) sulfamethoxazole Allergy ANAPHYLAXIS Verified 06/07/18 18:02 [From Bactrim] trimethoprim Allergy ANAPHYLAXIS Verified 06/07/18 18:02 - Medications Medications: Current Medications Acetaminophen (Tylenol 325mg Tab) 650 mg PO Q4H PRN; Protocol PRN Reason: Pain, Mild (1-3) Last Admin: 06/11/18 05:33 Dose: 650 mg Al Hydrox/Mg Hydrox/Simethicone (Maalox Plus 30 Ml) 30 ml PO DAILY PRN PRN Reason: Indigestion / Heartburn Aspirin (Ecotrin) 81 mg PO 0800 DMITRY; Protocol Last Admin: 06/14/18 09:00 Dose: 81 mg Atorvastatin Calcium (Lipitor) 20 mg PO DIN DMITRY; Protocol Last Admin: 06/13/18 17:43 Dose: 20 mg Cholecalciferol (Vitamin D) 2,000 intlu PO DAILY DMITRY; Protocol Last Admin: 06/14/18 10:05 Dose: 2,000 intlu Levothyroxine Sodium (Synthroid) 100 mcg PO 0600 DMITRY; Protocol Last Admin: 06/14/18 06:13 Dose: 100 mcg Lidocaine (Lidoderm) 1 ea TD DAILY DMITRY Last Admin: 06/14/18 10:04 Dose: 1 ea Losartan Potassium (Cozaar) 50 mg PO DAILY DMITRY; Protocol Last Admin: 06/14/18 10:04 Dose: 50 mg Meclizine HCl (Antivert) 12.5 mg PO DAILY PRN; Protocol PRN Reason: Dizziness Ondansetron HCl (Zofran Inj) 4 mg IVP Q6H PRN; Protocol PRN Reason: Nausea/Vomiting Tramadol HCl (Ultram) 50 mg PO Q6H PRN; Protocol PRN Reason: Pain, moderate (4-7) Last Admin: 06/11/18 19:28 Dose: 50 mg Physical Exam - Constitutional Appears: Well, No Acute Distress - Head Exam Head Exam: ATRAUMATIC, NORMOCEPHALIC - Eye Exam Eye Exam: Normal appearance - ENT Exam ENT Exam: Mucous Membranes Moist, Normal Exam - Neck Exam Neck exam: Positive for: Normal Inspection - Respiratory Exam Respiratory Exam: Clear to Auscultation Bilateral, NORMAL BREATHING PATTERN. absent: Rhonchi, Wheezes, Respiratory Distress - Cardiovascular Exam Cardiovascular Exam: REGULAR RHYTHM, +S1, +S2 - GI/Abdominal Exam GI & Abdominal Exam: Firm, Normal Bowel Sounds, Soft. absent: Diminished Bowel Sounds, Distended, Guarding, Hernia, Mass, Organomegaly, Pulsatile Mass, Rebo und, Rigid, Tenderness - Extremities Exam Extremities exam: Negative for: joint swelling, pedal edema - Psychiatric Exam Psychiatric exam: Normal Affect, Normal Mood - Skin Skin Exam: Dry, Intact, Normal Color, Warm Results - Vital Signs Recent Vital Signs: Last Vital Signs Temp 98.5 F 06/13/18 16:00 Pulse 72 06/14/18 10:04 Resp 18 06/13/18 16:00 BP 149/94 H 06/14/18 10:04 Pulse Ox 100 06/13/18 17:28 - Labs Result Diagrams: 06/13/18 07:10 06/13/18 07:10 Assessment & Plan - Assessment and Plan (Free Text) Assessment: Edna Hsu is a 78F w/ hx of TB, vertigo, Right eye clot, R hip replacement, Thyroid nodule and T12 compression who presented as a transfer from [facility]hab post T12 Kyphoplasty. Constipation Abd bloating s/p T12 Kyphoplasty Plan: -minimize narcotics -start miralax daily -encourge water intake -ambulate -due for colonoscopy with [facility], Dr. Huynh, encouraged to follow-up -no needs for additional endoscopy at this time D/W Dr. Chowdhury <Jarrett Chowdhury - Last Filed: 06/14/18 11:45> Meds - Medications Medications: Current Medications Acetaminophen (Tylenol 325mg Tab) 650 mg PO Q4H PRN; Protocol PRN Reason: Pain, Mild (1-3) Last Admin: 06/11/18 05:33 Dose: 650 mg Al Hydrox/Mg Hydrox/Simethicone (Maalox Plus 30 Ml) 30 ml PO DAILY PRN PRN Reason: Indigestion / Heartburn Aspirin (Ecotrin) 81 mg PO 0800 DMITRY; Protocol Last Admin: 06/14/18 09:00 Dose: 81 mg Atorvastatin Calcium (Lipitor) 20 mg PO DIN DMITRY; Protocol Last Admin: 06/13/18 17:43 Dose: 20 mg Cholecalciferol (Vitamin D) 2,000 intlu PO DAILY DMITRY; Protocol Last Admin: 06/14/18 10:05 Dose: 2,000 intlu Levothyroxine Sodium (Synthroid) 100 mcg PO 0600 DMITRY; Protocol Last Admin: 06/14/18 06:13 Dose: 100 mcg Lidocaine (Lidoderm) 1 ea TD DAILY DMITRY Last Admin: 06/14/18 10:04 Dose: 1 ea Losartan Potassium (Cozaar) 50 mg PO DAILY DMITRY; Protocol Last Admin: 06/14/18 10:04 Dose: 50 mg Meclizine HCl (Antivert) 12.5 mg PO DAILY PRN; Protocol PRN Reason: Dizziness Ondansetron HCl (Zofran Inj) 4 mg IVP Q6H PRN; Protocol PRN Reason: Nausea/Vomiting Polyethylene Glycol (Miralax) 17 gm PO DAILY DMITRY Tramadol HCl (Ultram) 50 mg PO Q6H PRN; Protocol PRN Reason: Pain, moderate (4-7) Last Admin: 06/11/18 19:28 Dose: 50 mg Results - Vital Signs Recent Vital Signs: Last Vital Signs Temp 98.5 F 06/13/18 16:00 Pulse 72 06/14/18 10:04 Resp 18 06/13/18 16:00 BP 149/94 H 06/14/18 10:04 Pulse Ox 100 06/13/18 17:28 - Labs Result Diagrams: 06/13/18 07:10 06/13/18 07:10 Attending/Attestation - Attestation I have personally seen and examined this patient.: Yes I have fully participated in the care of the patient.: Yes I have reviewed all pertinent clinical information: Yes Notes (Text): 06/14/18 11:40 I have seen and examined patient with GI fellow. Agree with above documentation with the following additions. In brief, this is a 78 year old female with hi story of hip replacement, T12 compression fracture with recent kyphoplasty who presents to rehabilitation facility for ongoing physical therapy. GI called for evaluation of abdominal pain which started yesterday. Prior to this she was in usual state of health. She describes an epigastric pain, 5/10 intensity with associated loss of appetite. She reports recent constipation following surgical procedure with reduction of pain medication over the past 2 days. She also endorses passage of hard stool with occasional straining. She denies nausea, vomiting, fever/chills, weight loss, rectal bleeding. She had a colonoscopy with Dr. Gallo 5 years ago which was normal as per patient. T12 compression fracture s/p kyphoplasty Abdominal pain Constipation - Diet as tolerated - Encourage ambulation, OOB - Initiate bowel regimen to prevent constipation - Encourage increased PO water and fiber intake - After hospital discharge, patient will follow up with Dr. Gallo (primary GI physician) for ongoing care - Will continue to monitor patient clinical course
[2018-06-14 11:45] LABS: ALB/GLOB RATIO 1.3 (1.1-1.8); ALBUMIN 4.4 g/dL (3.0-4.8); ALT/SGPT 15 U/L (7-56); AST/SGOT 28 U/L (14-36); BLOOD UREA NITROGEN 17 mg/dL (7-21); CALCIUM 9.8 mg/dL (8.4-10.5); GFR NON-AFRICAN AMERICAN > 60
[2018-06-14] MEDS: POLYETHYLENE GLYCOL 3350 17 GM/Dose PACKET PO SCH (12:11)
--- NOTE | 2018-06-14 14:18 | PN ---
DATE: 06/14/2018 SUBJECTIVE: She had a very rough night last night with abdominal discomfort. She thinks she ate, she had some diarrhea, was watery. Check the stool for C. diff. Also, she needs something for her tummy and just uncomfortable. I will call in GI to take a look at her. I gave her some Mylanta, doing the stool for C. diff. Otherwise, she is doing okay. Hopefully that will improve. She is trying in physical therapy. PHYSICAL EXAMINATION: TIMUR SIGNS: Temperature 98.5, 66 pulse, 124/76 blood pressure, 18 respiratory rate, 95% O2 sat on room air. HEAD: Atraumatic, normocephalic. HEART: Regular rate. LUNGS: Decreased breath sounds. ABDOMEN: Mildly distended, bloated. Positive bowel sounds. No guarding or rebound or CVA tenderness and there is bowel sounds. EXTREMITIES: Tender but there is no edema. MEDICATIONS: She is on Antivert, Ecotrin, Lidoderm, Lipitor, Maalox, Synthroid, Tylenol, Ultram, vitamin D and Zofran. RECOMMENDATIONS: No labs for today. I will order them. I am hoping that this will pass. I will see what GI has to offer. She is here for a fall with compression fracture, status post kyphoplasty. Eyal Juarez DO MTDMarycarmen
[2018-06-14 17:01] VITALS: PULSE 66; TEMP 98.2; O2SAT 98
[2018-06-15] MEDS: Levothyroxine 100 MCG TAB PO SCH (05:43)
[2018-06-15 07:29] LABS: HEMOGLOBIN 12.3 g/dL (12.0-16.0); MEAN CELL VOLUME 93.1 fl (80.0-105.0); MEAN CORPUSCULAR HEMOGLOBIN 30.3 pg (25.0-35.0); MEAN CORPUSCULAR HGB CONC 32.5 g/dl (31.0-37.0); MEAN PLATELET VOLUME 7.9 fl (7.0-11.0); RBC 4.06 10^6/uL (3.5-6.1); RED CELL DISTRIBUTION WIDTH 13.6 % (11.5-14.5); WHITE BLOOD COUNT 9.2 10^3/uL (4.5-11.0)
[2018-06-15] MEDS: POLYETHYLENE GLYCOL 3350 17 GM/Dose PACKET PO SCH (09:33)
[2018-06-15] MEDS: Lidocaine 5% Patch TD SCH (09:34)
[2018-06-15] MEDS: Cholecalciferol 1,000 INTLU TAB PO SCH (09:34)
[2018-06-15 09:42] VITALS: BP 130/67
--- NOTE | 2018-06-16 05:17 | DS ---
HISTORY OF PRESENT ILLNESS: She is being discharged from the TCU today. She is feeling a little bit better. She had a fall with compression fracture status post kyphoplasty and needed physical therapy and pain relief. She is going to go home on Antivert, Cozaar, Ecotrin, Lidoderm, Lipitor, Zocor, MiraLax, Synthroid, Ultram, vitamin D and some Zofran. PHYSICAL EXAMINATION VITAL SIGNS: She has a 98.2 temperature, 66 pulse, 143/88 blood pressure and 130/67 blood pressure, 18 respiratory rate, 98% O2 sat on room air. HEENT: Head: Atraumatic, normocephalic. HEART: Regular rate. LUNGS: Decreased breath sounds, but clear. ABDOMEN: Soft, obese, nontender. EXTREMITIES: No edema. There is some tender to the legs to palpation and low back pain, but not as bad as when she came in. She will be discharged today home. I will see her on the outpatient. She has had some stomach upset and I called in GI. She has some constipation. They gave her some MiraLax, hoping that will work out. She is being discharged home and will see me in the office in a week. Eyal Juarez DO
== END 2018-06-15 14:20 | disposition home or self-care (01) | DRG 561 ==
LOC: TRCU 14:50
PROVIDERS: ADMIT Family Medicine; ATTEND Family Medicine
PROC: F07Z9FZ Gait Training/Functional Ambulation Treatment using Assistive, Adaptive, Supportive or Protective Equipment (ICD-10-PCS; principal; 2018-06-08)
PROC: F07Z5ZZ Bed Mobility Treatment (ICD-10-PCS; 2018-06-08)
PROC: F07L6ZZ Therapeutic Exercise Treatment of Musculoskeletal System - Lower Back / Lower Extremity (ICD-10-PCS; 2018-06-09)
PROC: F08Z2ZZ Grooming/Personal Hygiene Treatment (ICD-10-PCS; 2018-06-09)
PROC: F08Z1FZ Dressing Techniques Treatment using Assistive, Adaptive, Supportive or Protective Equipment (ICD-10-PCS; 2018-06-09)
PROC: F07Z8ZZ Transfer Training Treatment (ICD-10-PCS; 2018-06-10)
DX: S22.089D Unspecified fracture of T11-T12 vertebra, subsequent encounter for fracture with routine healing (principal); E06.3 Autoimmune thyroiditis; E78.00 Pure hypercholesterolemia, unspecified; K59.00 Constipation, unspecified; I10 Essential (primary) hypertension; R42 Dizziness and giddiness; Z96.641 Presence of right artificial hip joint; W01.0XXD Fall on same level from slipping, tripping and stumbling without subsequent striking against object, subsequent encounter; Z86.11 Personal history of tuberculosis; Z86.73 Personal history of transient ischemic attack (TIA), and cerebral infarction without residual deficits; Z88.2 Allergy status to sulfonamides; Z91.040 Latex allergy status; Z88.0 Allergy status to penicillin

== ENCOUNTER 2018-06-11 09:03 | Outpatient (CLI) | payer MEDICARE, BC | END 2018-06-11 09:04 | disposition home or self-care (01) | LOC: RAD 09:03 ==